=== PATIENT | female | born 1970 | race Caucasian/White ===

== ENCOUNTER 2017-11-12 10:53 | Emergency (ER) | payer BC ==
[2017-11-12 11:00] VITALS: BP 124/85
--- NOTE | 2017-11-12 11:38 | ER Document Report ---
ED General - General Chief Complaint: Productive Cough Stated Complaint: COUGH Time Seen by Provider: 11/12/17 11:18 Mode of Arrival: Ambulatory Information source: Patient Notes: Patient is a 47-year-old female who presents with chief complaint of productive cough since Tuesday. Patient denies any fever. Patient also reports nasal congestion and pressure in both of her ears. Patient also complains of right thigh pain and tightness in the muscles. Patient denies any history of DVTs, denies any hormone replacement and denies any recent travel. TRAVEL OUTSIDE OF THE [place] IN LAST 30 DAYS: No - Related Data Allergies/Adverse Reactions: Penicillins Allergy (Verified 11/12/17 14:50) Past Medical History - General Information source: Patient - Social History Smoking Status: Current Every Day Smoker Frequency of alcohol use: None Drug Abuse: None Family History: Reviewed & Not Pertinent - Past Medical History Cardiac Medical History: Reports: Hx Hypertension Endocrine Medical History: Reports: Hx Hypothyroidism Surgical Hx: Negative - Immunizations Immunizations up to date: Yes Review of Systems - Review of Systems Constitutional: No symptoms reported EENT: See HPI Cardiovascular: No symptoms reported Respiratory: See HPI Gastrointestinal: No symptoms reported Genitourinary: No symptoms reported Female Genitourinary: No symptoms reported Musculoskeletal: See HPI Skin: No symptoms reported Hematologic/Lymphatic: No symptoms reported Neurological/Psychological: No symptoms reported Physical Exam - Vital signs Vitals: Temp Pulse Resp BP Pulse Ox 98.6 F 83 22 H 124/85 97 11/12/17 10:59 11/12/17 10:59 11/12/17 10:59 11/12/17 10:59 11/12/17 10:59 - Notes Notes: PHYSICAL EXAMINATION: GENERAL: Well-appearing, well-nourished and in no acute distress. HEAD: Atraumatic, normocephalic. Tenderness to palpation over maxillary sinuses. EYES: Pupils equal round and reactive to light, extraocular movements intact, conjunctiva are normal. ENT: Nares patent, oropharynx erythematous without exudates. Uvula midline, no evidence of [employer]. Moist mucous membranes. NECK: Normal range of motion, supple without lymphadenopathy LUNGS: Breath sounds clear to auscultation bilaterally and equal. No wheezes rales or rhonchi. HEART: Regular rate and rhythm without murmurs ABDOMEN: Soft, nontender, nondistended abdomen. No guarding, no rebound. No masses appreciated. Female : deferred Musculoskeletal: Normal range of motion, no pitting or edema. No cyanosis. NEUROLOGICAL: Cranial nerves grossly intact. Normal speech, normal gait. Normal sensory, motor exams PSYCH: Normal mood, normal affect. SKIN: Warm, Dry, normal turgor, no rashes or lesions noted. Course - Re-evaluation Re-evalutation: Patient's examination consistent with sinusitis. Will place patient on Augmentin. 11/12/17 14:49 Patient's pharmacy called and now reports the patient has a penicillin allergy. Prescription change from Augmentin to azithromycin 500 mg p.o. today then 250 mg p.o. for the next 4 days. Will update patient's allergy profile in our system. - Vital Signs Vital signs: Temp Pulse Resp BP Pulse Ox 98.6 F 83 22 H 124/85 97 11/12/17 10:59 11/12/17 10:59 11/12/17 10:59 11/12/17 10:59 11/12/17 10:59 Discharge - Discharge Clinical Impression: Sinus infection Qualifiers: Sinusitis location: unspecified location Chronicity: acute Recurrence: non- recurrent Qualified Code(s): J01.90 - Acute sinusitis, unspecified Condition: Stable Disposition: HOME, SELF-CARE Additional Instructions: Sinusitis You have sinusitis, an infection of the sinus cavities of the face. The sinuses are air-filled chambers which open into the inside of the nose. Bacteria and pus fill a sinus, causing pain, drainage, and fever. Sinusitis is treated with antibiotics. Often, expectorants (to thin the sinus mucous) or decongestants (to reduce swelling) are prescribed as well. Healing requires seven to 10 days. Avoid chemical fumes, pollens, dusts, and smoke (especially cigarette smoke ). Keep the air humidified in your bedroom and work area and take plenty of liquids by mouth. This condition can be serious if the infection spreads. If your symptoms worsen, or if you develop severe headache, high fever, stiff neck, or a rash, you must call the doctor or return for re-evaluation. Please take ibuprofen 600 mg every 6 hours for the pain to your thigh. You have declined the need for a muscle relaxer. If the pain continues, swelling develops, pain worsens or you develop any other concerning symptoms please return to the emergency department or your primary care provider. Take the medications have placed you on for your sinusitis, please also take some Mucinex D [id number] as this will help dry up the sinuses. Prescriptions: Benzonatate [Tessalon Perles 100 mg Capsule] 100 mg PO Q8HP PRN #40 capsule PRN Reason: Amox Tr/Potassium Clavulanate [Augmentin 875-125 Tablet] 1 tab PO BID 10 Days # 20 tablet Fluticasone Propionate [Flonase Nasal [place] 50 Mcg/[place] 16 gm] 2 sprays NASL Q12 #1 inhaler Referrals: CINTIA CHOWDHURY MD [Primary Care Provider] - Follow up as needed
== END 2017-11-12 11:45 | disposition home or self-care (01) ==
LOC: ER 10:53
DX: J01.90 Acute sinusitis, unspecified (principal); R09.81 Nasal congestion; M79.651 Pain in right thigh; F17.200 Nicotine dependence, unspecified, uncomplicated; I10 Essential (primary) hypertension; E03.9 Hypothyroidism, unspecified; Z88.0 Allergy status to penicillin
CPT/HCPCS: 99283